=== PATIENT | male | born 1960 | race African-American/Black ===

== ENCOUNTER 2018-12-04 12:16 | Inpatient (IN) | payer OTHER ==
[2018-12-04 12:56] VITALS: BMI 27.1
--- NOTE | 2018-12-04 14:32 | HP ---
CIWA Score Nausea/Vomitin-No Nausea/No Vomiting Muscle Tremors: 2 Anxiety: 3 Agitation: 4-Moderately Restless Paroxysmal Sweats: 1-Minimal Palms Moist Orientation: 0-Oriented Tacttile Disturbances: 2-Mild Itch/Numbness/Burn Auditory Disturbances: 0-None Visual Disturbances: 0-None Headache: 2-Mild CIWA-Ar Total Score: 14 - Admission Criteria OASAS Guidelines: Admission for Medically Managed Detox: Requires at least one of the followin. CIWA greater than 12 2. Seizures within the past 24 hours 3. Delirium tremens within the past 24 hours 4. Hallucinations within the past 24 hours 5. Acute intervention needed for co occurring medical disorder 6. Acute intervention needed for co occurring psychiatric disorder 7. Severe withdrawal that cannot be handled at a lower level of care (continued vomiting, continued diarrhea, abnormal vital signs) requiring intravenous medication and/or fluids 8. Admission ROS [facility] - [facility] Chief Complaint: ETOH WITHDRAWAL SX AND CRACK/COCAINE DEPENDENCE. Allergies/Adverse Reactions: Allergies Allergy/AdvReac Type Severity Reaction Status Date / Time No Known Allergies Allergy Verified 12/04/18 13:32 History of Present Illness: PATIENT PRESENTS WITH ETOH WITHDRAWAL SX. PATIENT STARTED DRINKING AT AGE 17, DRINKS 1 PINT OF VODKA AND 12 BEERS DAILY. LAST DRINK LAST NIGHT. + H/O BLACK OUTS, NEG FOR FALLS, DTS AND SEIZURES. PATIENT'S FIRST DRINK IS IN THE MORNING. PATIENT ALSO SMOKES CRACK/COCAINE SINCE AGE 23. AMOUNT VARIES ON INCOME. LAST TIME HE SMOKED WAS LAST NIGHT. LAST ADMISSION TO DETOX OVER 5 YEARS AGO. PMH INCLUDES DM, ASTHMA, HTN AND BIPOLAR DISORDER/DEPRESSION. PATIENT DENIES SI/HI AND SUICIDE ATTEMPTS. Exam Limitations: No Limitations - Ebola screening Have you traveled outside of the country in the last 21 days: No Have you had contact with anyone from an Ebola affected area: No Have you been sick,other than usual withdrawal symptoms: No Do you have a fever: No - Review of Systems Constitutional: Night Sweats, Changes in sleep EENT: reports: No Symptoms Reported Respiratory: reports: Cough (DRY COUGH) Cardiac: reports: No Symptoms Reported GI: reports: Blood Streaked Bowels (H/O BLOOD STREAKED BOWELS.), Poor Fluid Intake : reports: No Symptoms Reported Musculoskeletal: reports: Back Pain, Muscle Pain Integumentary: reports: Sweating Neuro: reports: Headache, Numbness, Tingling Endocrine: reports: No Symptoms Reported Hematology: reports: No Symptoms Reported Psychiatric: reports: Orientated x3, Anxious, Depressed Patient History - Patient Medical History Hx Anemia: No Hx Asthma: Yes Hx Chronic Obstructive Pulmonary Disease (COPD): No Hx Cancer: No Hx Cardiac Disorders: No Hx Congestive Heart Failure: No Hx Hypertension: Yes Hx Hypercholesterolemia: No Hx Pacemaker: No HX Cerebrovascular Accident: No Hx Seizures: No Hx Dementia: No Hx Diabetes: Yes (NIDDM) Hx Gastrointestinal Disorders: No Hx Liver Disease: No Hx Genitourinary Disorders: No Hx Sexually Transmitted Disorders: No Hx Renal Disease (ESRD): No Hx Thyroid Disease: No Hx Human Immunodeficiency Virus (HIV): No Hx Hepatitis C: No Hx Depression: Yes Hx Suicide Attempt: No Hx Bipolar Disorder: No Hx Schizophrenia: No - Patient Surgical History Past Surgical History: Yes Hx Neurologic Surgery: No Hx Cataract Extraction: No Hx Cardiac Surgery: No Hx Lung Surgery: No Hx Breast Surgery: No Hx Breast Biopsy: No Hx Abdominal Surgery: No Hx Appendectomy: No Hx Cholecystectomy: No Hx Genitourinary Surgery: No Hx Orthopedic Surgery: No Other Surgical History: thyroid sx in 08/2018 Anesthesia Reaction: No - PPD History Previous Implant?: Yes Documented Results: Negative w/o proof PPD to be Administered?: Yes - Smoking Cessation Smoking history: Current every day smoker Have you smoked in the past 12 months: Yes Aproximately how many cigarettes per day: 10 Hx Chewing Tobacco Use: No Initiated information on smoking cessation: Yes 'Breaking Loose' booklet given: 12/04/18 - Substance & Tx. History Hx Alcohol Use: Yes Hx Substance Use: Yes Substance Use Type: Alcohol, Cocaine Hx Substance Use Treatment: Yes - Substances Abused Crack Route: Smoking Frequency: Daily Amount used: $300 Age of first use: 22 Date of Last Use: 12/03/18 Alcohol-beer/vodka Route: Oral Frequency: Daily Amount used: 2-3 6 pks./1 pt. Age of first use: 17 Date of Last Use: 12/04/18 Family Disease History - Family Disease History Family Disease History: Diabetes: Brother, Sister Admission Physical Exam BHS - Vital Signs Vital Signs: Vital Signs - 24 hr 12/04/18 12:55 Temperature 97.0 F L Pulse Rate 84 Respiratory 18 Rate Blood Pressure 118/73 - Physical General Appearance: Yes: Appropriately Dressed, Tremorous, Anxious HEENTM: Yes: EOMI, Hearing grossly Normal, Normocephalic, Normal Voice, GEO, Pharynx Normal Respiratory: Yes: Chest Non-Tender, Lungs Clear, Normal Breath Sounds, No Respiratory Distress, No Accessory Muscle Use Neck: Yes: No masses,lesions,Nodules, Supple, Trachea in good position Breast: Yes: Breast Exam Deferred Cardiology: Yes: Regular Rhythm, Regular Rate, S1, S2 Abdominal: Yes: Normal Bowel Sounds, Non Tender, Soft Genitourinary: Yes: Within Normal Limits Back: Yes: Normal Inspection, Muscle Spasm Musculoskeletal: Yes: full range of Motion, Gait Steady, Back pain, Muscle Pain Extremities: Yes: Normal Inspection, Normal Range of Motion, Tremors Neurological: Yes: transport rn II-XII NML intact, Fully Oriented, Alert, Motor Strength 5/5, Depressed Affect Integumentary: Yes: Normal Color, Warm, Moist Lymphatic: Yes: Within Normal Limits - Diagnostic (1) Alcohol dependence with uncomplicated withdrawal Current Visit: Yes Status: Acute (2) Cocaine dependence Current Visit: Yes Status: Chronic Qualifiers: Substance use status: uncomplicated Qualified Code(s): F14.20 - Cocaine dependence, uncomplicated (3) Diabetes 1.5, managed as type 2 Current Visit: Yes Status: Chronic (4) HTN (hypertension) Current Visit: Yes Status: Chronic Qualifiers: Hypertension type: essential hypertension Qualified Code(s): I10 - Essential (primary) hypertension (5) Asthma Current Visit: Yes Status: Chronic Qualifiers: Asthma severity: mild Asthma complication type: unspecified Cleared for Admission [facility] - Detox or Rehab [facility] Level of Care: Medically Managed Detox Regimen/Protocol: Librium [facility] Breath Alcohol Content Breath Alcohol Content: 0 Urine Drug Screen - Results Drug Screen Negative: No Urine Drug Screen Results: YESI-Cocaine
[2018-12-04] MEDS ORDERED: MAGNESIUM HYDROX 2400MG/30ML ORAL SUSPENSION 30 ML CUP PO PRN (14:41)
[2018-12-04] MEDS ORDERED: MENTHOL/PHENOL 1 EACH UD MM PRN (14:41)
[2018-12-04] MEDS ORDERED: IBUPROFEN 400 MG TABLET (FP) PO PRN (14:41)
[2018-12-04] MEDS ORDERED: guaiFENesin/D-METHORPHAN HB 10 ML UNIT-DOSE CUPS PO PRN (14:41)
[2018-12-04] MEDS ORDERED: MAGNESIUM CITRATE 300 ML BOTTLE PO PRN (14:41)
[2018-12-04] MEDS ORDERED: hydrOXYzine PAMOATE 50 MG CAPSULE (FP) PO PRN (14:41)
[2018-12-04] MEDS ORDERED: ACETAMINOPHEN 325 MG TABLET (FP) PO PRN (14:41)
[2018-12-04] MEDS ORDERED: MAG HYDROX/AL HYDROX/SIMETH 30 ML UNIT-DOSE CUP PO PRN (14:41)
[2018-12-04] MEDS ORDERED: LOPERAMIDE HCL 2 MG CAPSULE PO PRN (14:41)
[2018-12-04] MEDS ORDERED: P-EPHED 60MG/TRIPROLIDI 2.5MG TABLET PO PRN (14:41)
[2018-12-04] MEDS ORDERED: NICOTINE POLACRILEX 2 MG GUM BUC PRN (14:41)
[2018-12-04] MEDS ORDERED: ALBUTEROL SO4 8 GM HFA INHALER IH PRN (14:42)
[2018-12-04] MEDS ORDERED: chlordiazePOXIDE HCL 25 MG CAPSULE PO PRN (15:23)
[2018-12-04] MEDS: metFORMIN HCL 500 MG TABLET (FP) PO SCH (17:33)
[2018-12-04] MEDS: chlordiazePOXIDE HCL 25 MG CAPSULE PO SCH ×2 (17:33→22:16)
[2018-12-04] MEDS ORDERED: MELATONIN 5 MG TABLETS PO PRN (22:00)
[2018-12-04] MEDS: THIAMINE HCL 100 MG TABLET (FP) PO SCH (22:16)
[2018-12-05] MEDS: chlordiazePOXIDE HCL 25 MG CAPSULE PO SCH ×4 (05:36→22:35)
[2018-12-05] MEDS: metFORMIN HCL 500 MG TABLET (FP) PO SCH ×2 (06:37→17:51)
[2018-12-05] MEDS: GLIMEPIRIDE 4 MG TABLET (FP) PO SCH (06:37)
[2018-12-05 10:01] LABS: HEMATOCRIT 36.7 % (35.4-49); HEMOGLOBIN 12.1 GM/dL (11.7-16.9); MCH 28.6 pg (25.7-33.7); MCHC 32.9 g/dl (32.0-35.9); MEAN CELL VOLUME 87.1 fl (80-96); MEAN PLT VOLUME 8.8 fl (7.5-11.1); PLATELET COUNT 220 K/MM3 (134-434); RBC 4.21 M/mm3 (4.00-5.60); WHITE BLOOD COUNT 5.3 K/mm3 (4.0-10.0)
[2018-12-05 10:32] LABS: ALBUMIN 3.5 g/dl (3.4-5.0); ALK PHOS 113 U/L (45-117); ANION GAP 8 MMOL/L (8-16); BILIRUBIN,TOTAL 0.2 mg/dL (0.2-1); BLOOD UREA NITROGEN 29 mg/dL (7-18); CALCIUM 8.8 mg/dL (8.5-10.1); CHLORIDE 110 mmol/L (98-107); CO2 25 mmol/L (21-32); CREATININE 1.3 mg/dL (0.55-1.3); GLUCOSE,RANDOM 174 mg/dL (74-106); POTASSIUM 4.1 mmol/L (3.5-5.1); SGOT/AST 22 U/L (15-37); SGPT/ALT 28 U/L (13-61); SODIUM 143 mmol/L (136-145); TOT PROT 6.9 g/dl (6.4-8.2)
[2018-12-05] MEDS: PRENATAL VITAMINS W/ FOLIC ACID TABLET (FP) PO SCH (11:02)
[2018-12-05] MEDS: LISINOPRIL 5 MG TABLET (FP) PO SCH (11:03)
[2018-12-05] MEDS: ASPIRIN COATED 81 MG TABLET.EC PO SCH (11:04)
[2018-12-05] MEDS: NICOTINE 21 MG/24 HOURS TOPICAL PATCH TD SCH (11:04)
--- NOTE | 2018-12-05 11:41 | CONSULT ---
[facility] Psychiatric Consult - Data Date of interview: 12/05/18 Admission source: [facility] Identifying data: Patient is a 59 year old male, father of four, domiciled, and currently unemployed (lost his job yesterday). This is one of multiple admissions for patient. Patient admitted to for alcohol and cocaine dependence. Substance Abuse History: - Smoking Cessation. Smoking history: Current every day smoker. Have you smoked in the past 12 months: Yes. Aproximately how many cigarettes per day: 10. Hx Chewing Tobacco Use: No. Initiated information on smoking cessation: Yes. 'Breaking Loose' booklet given: 12/04/18. - Substance & Tx. History. Hx Alcohol Use: Yes. Hx Substance Use: Yes. Substance Use Type : Alcohol, Cocaine. Hx Substance Use Treatment: Yes. - Substances Abused. Crack. Route: Smoking. Frequency: Daily. Amount used: $300. Age of first use : 22. Date of Last Use: 12/03/18. Alcohol-beer/vodka. Route: Oral. Frequency: Daily. Amount used: 2-3 6 pks./1 pt. Age of first use: 17. Date of Last Use: 12/04/18 Medical History: Asthma, hypertension, diabetes, thyroid sx in 08/2018 Psychiatric History: Patient denies h/o psychiatric hospitalization. Mr. New reports receiving psychiatric care three years ago at the [facility] service in [place], [place]. He was diagnosed with depression and prescribed zoloft + depakote. He was most recently admitted to the inpatient rehab program at [facility] in September of 2018 and was prescribed zoloft 50mg and Depakote 500mg daily + 1000mg HS. He was given a 30 day prescription on October 19. He reports completing the zoloft medication but continues to have depakote tablets at home. Mr. New reports sub-optimal adherence to depakote. Patient denies h/o suicide attempt. At present he reports feeling sad. Physical/Sexual Abuse/Trauma History: denies. Mental Status Exam - Mental Status Exam Alert and Oriented to: Time, Place, Person Cognitive Function: Good Patient Appearance: Well Groomed Mood: Sad Affect: Mood Congruent Patient Behavior: Appropriate, Cooperative Speech Pattern: Clear, Appropriate Voice Loudness: Normal Thought Process: Intact, Goal Oriented Thought Disorder: Not Present Hallucinations: Denies Suicidal Ideation: Denies Homicidal Ideation: Denies Insight/Judgement: Poor Sleep: Fair Appetite: Fair Muscle strength/Tone: Normal Gait/Station: Normal Psychiatric Findings - Problem List ([place] 1, 2,3) (1) Alcohol dependence with uncomplicated withdrawal Current Visit: Yes Status: Acute (2) Cocaine dependence Current Visit: Yes Status: Chronic Qualifiers: Substance use status: uncomplicated Qualified Code(s): F14.20 - Cocaine dependence, uncomplicated (3) Mood disorder Current Visit: Yes Status: Chronic - Initial Treatment Plan Initial Treatment Plan: Psychoeducation provided. Detoxificiation in progress. Will order Zoloft 50mg + Depakote 500mg HS (liver enzymes within normal limits) . Benefits and side effects discussed. Verbal consent given.
--- NOTE | 2018-12-05 14:43 | PN ---
S CIWA - CIWA Score Nausea/Vomitin-No Nausea/No Vomiting Muscle Tremors: 3 Anxiety: 0-No Anxiety, at Ease Agitation: 0-Normal Activity Paroxysmal Sweats: 3 Orientation: 2-Disoriented Date<2 days Tacttile Disturbances: 2-Mild Itch/Numbness/Burn Auditory Disturbances: 0-None Visual Disturbances: 3-Moderate Sensitivity Headache: 0-None Present CIWA-Ar Total Score: 13 BHS Progress Note (SOAP) Subjective: Fatigue, Sweating, Tremors. Objective: PATIENT A & O X 2 (UNCERTAIN ABOUT CURRENT DAY / DATE). IN NO ACUTE DISTRESS. 12/05/18 14:44 Vital Signs Temperature 97.8 F 12/05/18 13:49 Pulse Rate 70 12/05/18 13:49 Respiratory Rate 18 12/05/18 13:49 Blood Pressure 129/70 12/05/18 13:49 O2 Sat by Pulse Oximetry (%) Laboratory Tests 12/04/18 12/04/18 12/05/18 13:54 15:41 05:35 WBC RBC Hgb Hct MCV MCH MCHC RDW Plt Count MPV Sodium Potassium Chloride Carbon Dioxide Anion Gap BUN Creatinine Creat Clearance w eGFR POC Glucometer 112 181 Random Glucose Calcium Total Bilirubin AST ALT Alkaline Phosphatase Total Protein Albumin RPR Titer HIV 1&2 Antibody Screen Negative HIV P24 Antigen Negative 12/05/18 12/05/18 12/05/18 05:40 05:40 05:40 WBC 5.3 RBC 4.21 Hgb 12.1 Hct 36.7 MCV 87.1 MCH 28.6 MCHC 32.9 RDW 16.0 H Plt Count 220 MPV 8.8 Sodium 143 Potassium 4.1 Chloride 110 H Carbon Dioxide 25 Anion Gap 8 BUN 29 H Creatinine 1.3 Creat Clearance w eGFR 56.90 POC Glucometer Random Glucose 174 H Calcium 8.8 Total Bilirubin 0.2 AST 22 ALT 28 Alkaline Phosphatase 113 Total Protein 6.9 Albumin 3.5 RPR Titer Nonreactive HIV 1&2 Antibody Screen HIV P24 Antigen LABS NOTED. Assessment: 12/05/18 14:45 WITHDRAWAL SYMPTOMS. Plan: CONTINUE DETOX. D/C IBUPROFEN AND MAGNESIUM-CONTAINING MEDS. FOR ABNORMAL ADMISSION RENAL LAB VALUES.
[2018-12-05] MEDS ORDERED: DIVALPROEX SODIUM 125 MG TABLET E.C. PO SCH (22:00)
[2018-12-05] MEDS: THIAMINE HCL 100 MG TABLET (FP) PO SCH (22:35)
[2018-12-06] MEDS: chlordiazePOXIDE HCL 25 MG CAPSULE PO SCH ×2 (05:26→11:24)
[2018-12-06] MEDS: metFORMIN HCL 500 MG TABLET (FP) PO SCH ×2 (06:21→16:42)
[2018-12-06] MEDS: GLIMEPIRIDE 4 MG TABLET (FP) PO SCH (06:21)
[2018-12-06] MEDS: ASPIRIN COATED 81 MG TABLET.EC PO SCH (11:24)
[2018-12-06] MEDS: SERTRALINE HCL 50 MG TABLET (FP) PO SCH (11:24)
[2018-12-06] MEDS: PRENATAL VITAMINS W/ FOLIC ACID TABLET (FP) PO SCH (11:24)
[2018-12-06] MEDS: LISINOPRIL 5 MG TABLET (FP) PO SCH (11:24)
[2018-12-06] MEDS: NICOTINE 21 MG/24 HOURS TOPICAL PATCH TD SCH (11:25)
--- NOTE | 2018-12-06 16:05 | PN ---
[facility] CIWA - CIWA Score Nausea/Vomitin-Mild Nausea/No Vomiting Muscle Tremors: 3 Anxiety: 3 Agitation: 3 Paroxysmal Sweats: 3 Orientation: 0-Oriented Tacttile Disturbances: 0-None Auditory Disturbances: 0-None Visual Disturbances: 0-None Headache: 0-None Present CIWA-Ar Total Score: 13 S Progress Note (SOAP) Subjective: Diarrhea Objective: 12/06/18 16:02 Last Vital Signs Temp Pulse Resp BP Pulse Ox 98.9 F 72 20 126/70 12/06/18 14:27 12/06/18 14:27 12/06/18 14:27 12/06/18 14:27 Laboratory Tests 12/04/18 12/04/18 12/05/18 13:54 15:41 05:35 WBC RBC Hgb Hct MCV MCH MCHC RDW Plt Count MPV Sodium Potassium Chloride Carbon Dioxide Anion Gap BUN Creatinine Creat Clearance w eGFR POC Glucometer 112 181 Random Glucose Calcium Total Bilirubin AST ALT Alkaline Phosphatase Total Protein Albumin RPR Titer HIV 1&2 Antibody Screen Negative HIV P24 Antigen Negative 12/05/18 12/05/18 12/05/18 05:40 05:40 05:40 WBC 5.3 RBC 4.21 Hgb 12.1 Hct 36.7 MCV 87.1 MCH 28.6 MCHC 32.9 RDW 16.0 H Plt Count 220 MPV 8.8 Sodium 143 Potassium 4.1 Chloride 110 H Carbon Dioxide 25 Anion Gap 8 BUN 29 H Creatinine 1.3 Creat Clearance w eGFR 56.90 POC Glucometer Random Glucose 174 H Calcium 8.8 Total Bilirubin 0.2 AST 22 ALT 28 Alkaline Phosphatase 113 Total Protein 6.9 Albumin 3.5 RPR Titer Nonreactive HIV 1&2 Antibody Screen HIV P24 Antigen 12/05/18 12/06/18 16:34 05:25 WBC RBC Hgb Hct MCV MCH MCHC RDW Plt Count MPV Sodium Potassium Chloride Carbon Dioxide Anion Gap BUN Creatinine Creat Clearance w eGFR POC Glucometer 144 178 Random Glucose Calcium Total Bilirubin AST ALT Alkaline Phosphatase Total Protein Albumin RPR Titer HIV 1&2 Antibody Screen HIV P24 Antigen Labs reviewed: increased glucose due to dm; prerenal azotemia Assessment: 12/06/18 16:03 Withdrawal symptoms Noted with hyperglycemia and prerenal azotemia Plan: Continue detox Hyperglycemia: secondary to DMT2, continue diabetic regimen, follow up with PCP for management Prerenal azotemia: encouraged PO water hydration
[2018-12-06] MEDS: chlordiazePOXIDE 5 MG CAPSULE PO SCH ×2 (16:43→22:05)
--- NOTE | 2018-12-06 19:41 | EKG ---
Test Reason : Blood Pressure : / mmHG Vent. Rate : 076 BPM Atrial Rate : 076 BPM P-R Int : 178 ms QRS Dur : 080 ms QT Int : 418 ms P-R-T Axes : 067 053 016 degrees QTc Int : 470 ms NORMAL SINUS RHYTHM MINIMAL VOLTAGE CRITERIA FOR LVH, MAY BE NORMAL VARIANT BORDERLINE ECG NO PREVIOUS ECGS AVAILABLE Confirmed by HELIO PHELPS MD ([id number]) on 12/06/2018 7:40:43 PM Referred By: Confirmed By:HELIO PHELPS MD
[2018-12-06] MEDS: DIVALPROEX SODIUM 500 MG TABLET E.C. PO SCH (22:04)
[2018-12-06] MEDS: THIAMINE HCL 100 MG TABLET (FP) PO SCH (22:04)
[2018-12-07] MEDS: GLIMEPIRIDE 4 MG TABLET (FP) PO SCH (06:08)
[2018-12-07] MEDS: chlordiazePOXIDE 5 MG CAPSULE PO SCH ×2 (06:08→10:27)
[2018-12-07] MEDS: metFORMIN HCL 500 MG TABLET (FP) PO SCH ×2 (06:09→16:39)
[2018-12-07] MEDS: LISINOPRIL 5 MG TABLET (FP) PO SCH (10:26)
[2018-12-07] MEDS: PRENATAL VITAMINS W/ FOLIC ACID TABLET (FP) PO SCH (10:27)
[2018-12-07] MEDS: NICOTINE 21 MG/24 HOURS TOPICAL PATCH TD SCH (10:27)
[2018-12-07] MEDS: SERTRALINE HCL 50 MG TABLET (FP) PO SCH (10:27)
[2018-12-07] MEDS: ASPIRIN COATED 81 MG TABLET.EC PO SCH (10:27)
--- NOTE | 2018-12-07 11:08 | PN ---
BHS Progress Note (SOAP) Subjective: feeling better tremor sweating anxiety otherwise ok Objective: 12/07/18 11:07 Vital Signs Temperature 96.2 F L 12/07/18 09:25 Pulse Rate 92 H 12/07/18 09:25 Respiratory Rate 18 12/07/18 09:25 Blood Pressure 126/72 12/07/18 09:25 O2 Sat by Pulse Oximetry (%) Laboratory Last Values WBC 5.3 K/mm3 (4.0-10.0) 12/05/18 05:40 RBC 4.21 M/mm3 (4.00-5.60) 12/05/18 05:40 Hgb 12.1 GM/dL (11.7-16.9) 12/05/18 05:40 Hct 36.7 % (35.4-49) 12/05/18 05:40 MCV 87.1 fl (80-96) 12/05/18 05:40 MCH 28.6 pg (25.7-33.7) 12/05/18 05:40 MCHC 32.9 g/dl (32.0-35.9) 12/05/18 05:40 RDW 16.0 % (11.9-15.9) H 12/05/18 05:40 Plt Count 220 K/MM3 (134-434) 12/05/18 05:40 MPV 8.8 fl (7.5-11.1) 12/05/18 05:40 Sodium 143 mmol/L (136-145) 12/05/18 05:40 Potassium 4.1 mmol/L (3.5-5.1) 12/05/18 05:40 Chloride 110 mmol/L (98-107) H 12/05/18 05:40 Carbon Dioxide 25 mmol/L (21-32) 12/05/18 05:40 Anion Gap 8 MMOL/L (8-16) 12/05/18 05:40 BUN 29 mg/dL (7-18) H 12/05/18 05:40 Creatinine 1.3 mg/dL (0.55-1.3) 12/05/18 05:40 Creat Clearance w eGFR 56.90 (>60) 12/05/18 05:40 POC Glucometer 194 UNITS (80-120) 12/07/18 05:20 Random Glucose 174 mg/dL (74-106) H 12/05/18 05:40 Calcium 8.8 mg/dL (8.5-10.1) 12/05/18 05:40 Total Bilirubin 0.2 mg/dL (0.2-1) 12/05/18 05:40 AST 22 U/L (15-37) 12/05/18 05:40 ALT 28 U/L (13-61) 12/05/18 05:40 Alkaline Phosphatase 113 U/L (45-117) 12/05/18 05:40 Total Protein 6.9 g/dl (6.4-8.2) 12/05/18 05:40 Albumin 3.5 g/dl (3.4-5.0) 12/05/18 05:40 RPR Titer Nonreactive (NONREACTIVE) 12/05/18 05:40 HIV 1&2 Antibody Screen Negative 12/04/18 15:41 HIV P24 Antigen Negative 12/04/18 15:41 lab noted Assessment: 12/07/18 11:08 withdrawal sx Plan: continue detox
[2018-12-07] MEDS: chlordiazePOXIDE HCL 10 MG CAPSULE PO SCH ×2 (16:39→22:05)
[2018-12-07] MEDS: INSULIN SLIDING SCALE (NOVOLOG) 1 VIAL SQ SCH (16:42)
[2018-12-07] MEDS: DIVALPROEX SODIUM 500 MG TABLET E.C. PO SCH (22:05)
[2018-12-07] MEDS: THIAMINE HCL 100 MG TABLET (FP) PO SCH (22:05)
[2018-12-08] MEDS: chlordiazePOXIDE HCL 10 MG CAPSULE PO SCH (05:30)
[2018-12-08 06:11] VITALS: BP 134/70; PULSE 62; TEMP 97.1
[2018-12-08] MEDS: INSULIN SLIDING SCALE (NOVOLOG) 1 VIAL SQ SCH (06:24)
[2018-12-08] MEDS: metFORMIN HCL 500 MG TABLET (FP) PO SCH (06:24)
[2018-12-08] MEDS: GLIMEPIRIDE 4 MG TABLET (FP) PO SCH (06:25)
--- NOTE | 2018-12-08 11:22 | DS ---
[facility] Detox Discharge Summary Admission Date: 12/04/18 Discharge Date: 12/08/18 - History Present History: Alcohol Dependence Additional Comments: 58 years old male admitted on 12/04/18 for alcohol withdrawal stabilization completed detox regimen aftercare Dr. Donna huffman [facility] - Physical Exam Results Vital Signs: Vital Signs Temperature 97.1 F L 12/08/18 06:10 Pulse Rate 62 12/08/18 06:10 Respiratory Rate 18 12/08/18 06:30 Blood Pressure 134/70 12/08/18 06:10 O2 Sat by Pulse Oximetry (%) Pertinent Admission Physical Exam Findings: alcohol withdrawal sx Laboratory Last Values WBC 5.3 K/mm3 (4.0-10.0) 12/05/18 05:40 RBC 4.21 M/mm3 (4.00-5.60) 12/05/18 05:40 Hgb 12.1 GM/dL (11.7-16.9) 12/05/18 05:40 Hct 36.7 % (35.4-49) 12/05/18 05:40 MCV 87.1 fl (80-96) 12/05/18 05:40 MCH 28.6 pg (25.7-33.7) 12/05/18 05:40 MCHC 32.9 g/dl (32.0-35.9) 12/05/18 05:40 RDW 16.0 % (11.9-15.9) H 12/05/18 05:40 Plt Count 220 K/MM3 (134-434) 12/05/18 05:40 MPV 8.8 fl (7.5-11.1) 12/05/18 05:40 Sodium 143 mmol/L (136-145) 12/05/18 05:40 Potassium 4.1 mmol/L (3.5-5.1) 12/05/18 05:40 Chloride 110 mmol/L (98-107) H 12/05/18 05:40 Carbon Dioxide 25 mmol/L (21-32) 12/05/18 05:40 Anion Gap 8 MMOL/L (8-16) 12/05/18 05:40 BUN 29 mg/dL (7-18) H 12/05/18 05:40 Creatinine 1.3 mg/dL (0.55-1.3) 12/05/18 05:40 Creat Clearance w eGFR 56.90 (>60) 12/05/18 05:40 POC Glucometer 218 UNITS (80-120) 12/08/18 05:29 Random Glucose 174 mg/dL (74-106) H 12/05/18 05:40 Calcium 8.8 mg/dL (8.5-10.1) 12/05/18 05:40 Total Bilirubin 0.2 mg/dL (0.2-1) 12/05/18 05:40 AST 22 U/L (15-37) 12/05/18 05:40 ALT 28 U/L (13-61) 12/05/18 05:40 Alkaline Phosphatase 113 U/L (45-117) 12/05/18 05:40 Total Protein 6.9 g/dl (6.4-8.2) 12/05/18 05:40 Albumin 3.5 g/dl (3.4-5.0) 12/05/18 05:40 RPR Titer Nonreactive (NONREACTIVE) 12/05/18 05:40 HIV 1&2 Antibody Screen Negative 12/04/18 15:41 HIV P24 Antigen Negative 12/04/18 15:41 lab noted - Treatment Hospital Course: Detox Protocol Followed, Detoxed Safely, Responded well, Discharged Condition Good, Rehab Referral Accepted Patient has Accepted a Rehab Referral to: [facility] - Medication Discharge Medications: Ambulatory Orders Aspirin [Aspirin EC] 81 mg PO DAILY 12/04/18 Multivitamins [Multivit ([facility] Formulary)] 1 tab PO DAILY 12/04/18 Sertraline HCl [Zoloft -] 50 mg PO DAILY 12/04/18 Divalproex [Depakote -] 500 mg PO HS 12/05/18 Albuterol Sulfate Inhaler - [Ventolin HFA Inhaler -] 2 inh PO Q4H PRN #1 inhaler 12/07/18 Glimepiride [Amaryl -] 4 mg PO DAILY #14 tablet 12/07/18 Lisinopril [Zestril] 2.5 mg PO DAILY #14 tablet 12/07/18 Metformin HCl [Glucophage] 1,000 mg PO BID #30 tablet 12/07/18 - Diagnosis (1) Bipolar 1 disorder Status: Suspected (2) Alcohol dependence with uncomplicated withdrawal Status: Acute (3) Asthma Status: Chronic Qualifiers: Asthma severity: mild Asthma persistence: intermittent Asthma complication type: with status asthmaticus Qualified Code(s): J45.22 - Mild intermittent asthma with status asthmaticus (4) HTN (hypertension) Status: Chronic Qualifiers: Hypertension type: essential hypertension Qualified Code(s): I10 - Essential (primary) hypertension (5) Nicotine dependence Status: Acute Qualifiers: Nicotine product type: cigarettes Substance use status: in withdrawal Qualified Code(s): F17.213 - Nicotine dependence, cigarettes, with withdrawal (6) Type 2 diabetes mellitus with hyperglycemia Status: Chronic Qualifiers: Diabetes mellitus log clerk insulin use: unspecified nursing home insulin use status Qualified Code(s): E11.65 - Type 2 diabetes mellitus with hyperglycemia - AMA Did Patient Leave Against Medical Advice: No
== END 2018-12-08 08:52 | disposition home or self-care (01) | DRG 774 ==
LOC: YASAS 12:16 → Y3N 14:49
PROVIDERS: ADMIT Neuromusculoskeletal Medicine & OMM; ATTEND Neuromusculoskeletal Medicine & OMM
PROC: HZ2ZZZZ Detoxification Services for Substance Abuse Treatment (ICD-10-PCS; principal; 2018-12-04)
DX: F10.230 Alcohol dependence with withdrawal, uncomplicated (principal); F14.20 Cocaine dependence, uncomplicated; F17.213 Nicotine dependence, cigarettes, with withdrawal; F31.89 Other bipolar disorder; F39 Unspecified mood [affective] disorder; I10 Essential (primary) hypertension; J45.22 Mild intermittent asthma with status asthmaticus; E11.65 Type 2 diabetes mellitus with hyperglycemia; R79.89 Other specified abnormal findings of blood chemistry; Z79.84 Long term (current) use of oral hypoglycemic drugs
CPT/HCPCS: 36415; 80053; 82962; 85027; 86593; 87389; 93005; 93010